=== PATIENT | male | born 1950 | race Caucasian/White ===

== ENCOUNTER 2016-04-18 | Outpatient (CLI) | payer MEDICARE, BC | END 2016-04-18 10:11 | disposition short-term general hospital (02) | DX: R07.9 Chest pain, unspecified (principal) | CPT/HCPCS: A0170; A0425; A0427 ==

== ENCOUNTER 2016-07-13 12:31 | Emergency (ER) | payer MEDICARE, BC ==
[2016-07-13] MEDS ORDERED: ACETAMINOPHEN 325 MG TABLET PO STA (13:05)
[2016-07-13] MEDS ORDERED: DEXAMETHASONE 10 MG/ML VIAL PO STA (13:05)
[2016-07-13] MEDS ORDERED: ACETAMINOPHEN 325 MG TABLET PO ONE (13:08)
[2016-07-13] MEDS ORDERED: DEXAMETHASONE 10 MG/ML VIAL ONE (13:08)
[2016-07-13] MEDS ORDERED: CHERRY SYRUP 10 ML UDC PO ONE (13:08)
== END 2016-07-13 13:25 | disposition home or self-care (01) ==
DX: M46.1 Sacroiliitis, not elsewhere classified (principal); I11.0 Hypertensive heart disease with heart failure; I50.9 Heart failure, unspecified; F17.200 Nicotine dependence, unspecified, uncomplicated; E11.9 Type 2 diabetes mellitus without complications
CPT/HCPCS: 99283; 99284; A9270

== ENCOUNTER 2016-09-07 10:29 | Emergency (ER) | payer OTHER ==
--- NOTE | 2016-09-07 11:13 | ED Physician Documentation ---
PD HPI CHEST PAIN - Stated complaint Stated Complaint: AFIB - Chief complaint Chief Complaint: General - History obtained from History obtained from: Patient - History of Present Illness Timing - onset: How many days ago (4) Timing - details: Still present Pain level now: 3 Quality: Dull Location: Left chest Associated symptoms: Shortness of air (mild), Feeling faint / dizzy ( intermittently) Similar symptoms before: Diagnosis (Atrial fibrillation) - Additional information Additional information: The patient is a 65-year-old male who presents with atrial fibrillation that started 4 days ago and has persisted since that time, despite Valsalva maneuvers. For the past 2 days he has had left anterior chest discomfort which has been waxing and waning, and which he currently rates at 3 out of 10 in severity. He has had associated shortness of breath and lightheadedness when standing. He has measured his blood pressure as low as 80 systolic. He has a history of atrial fibrillation and has undergone cardioversion in the past. He has also undergone ablation therapy. He is currently anticoagulated on Xarelto and Plavix. Cardiac history is also significant for previous HI and CABG. Review of Systems Constitutional: denies: Fever Nose: denies: Congestion Throat: denies: Sore throat Cardiac: reports: Chest pain / pressure, Palpitations Respiratory: reports: Dyspnea. denies: Cough GI: denies: Abdominal Pain, Nausea, Vomiting : denies: Dysuria Skin: denies: Rash Musculoskeletal: denies: Back pain, Extremity swelling Neurologic: denies: Focal weakness, Numbness, Syncope, Headache PD PAST MEDICAL HISTORY - Past Medical History Cardiovascular: Congestive heart failure, Hypertension, High cholesterol, Coronary artery disease, HI, Atrial fibrillation Respiratory: COPD, Emphysema, Shortness of breath, Sleep apnea, CPAP use Neuro: Peripheral neuropathy Endocrine/Autoimmune: Type 2 diabetes GI: Diverticulitis : Frequency HEENT: Chronic vision loss Psych: Depression, Anxiety, Post traumatic stress disorder Musculoskeletal: Osteoarthritis Derm: None - Past Surgical History Past Surgical History: Yes General: Other Cardiovascular: CABG, Other HEENT: Tonsil/Adenoidectomy - Present Medications Home Medications: Ambulatory Orders Medication Instructions Recorded Confirmed Albuterol Sulfate [Proair Hfa] 2 puffs INH Q4HR 01/26/15 09/07/16 Fluoxetine HCl 40 mg PO DAILY 01/26/15 09/07/16 Isosorbide Mononitrate ER [Imdur] 30 mg PO DAILY 01/26/15 09/07/16 Metformin HCl 2,000 mg PO DAILY 01/26/15 09/07/16 Sotalol HCl [Sotalol] 120 mg PO BID 01/26/15 09/07/16 - Allergies Allergies/Adverse Reactions: Allergies Allergy/AdvReac Type Severity Reaction Status Date / Time No Known Drug Allergies Allergy Verified 07/13/16 12:45 - Living Situation Living Situation: reports: With spouse/s.o. - Social History Does the pt smoke?: Yes Smoking Status: Current every day smoker Does the pt drink ETOH?: No Does the pt have substance abuse?: No - Immunizations Immunizations are current?: Yes PD ED PE NORMAL - Vitals Vital signs reviewed: Yes (tachycardic) - General General: Alert and oriented X 3, Well developed/nourished - HEENT HEENT: Atraumatic, Pharynx benign - Neck Neck: No adenopathy, No JVD - Cardiac Cardiac: No murmur, Other (Slightly rapid rate, irregularly irregular rhythm.) - Respiratory Respiratory: No respiratory distress, Clear bilaterally - Abdomen Abdomen: Soft, Non tender - Back Back: No CVA TTP - Derm Derm: No rash - Extremities Extremities: No edema, No calf tenderness / cord - Neuro Neuro: Alert and oriented X 3, No motor deficit, Normal speech Results - Vitals Vitals: Vital Signs - 24 hr 09/07/16 09/07/16 09/07/16 10:44 11:56 12:01 Temperature 36.2 C L Heart Rate 110 H 102 H 94 Respiratory 18 19 16 Rate Blood Pressure 125/91 H 118/90 H 108/84 H O2 Saturation 98 95 98 09/07/16 09/07/16 09/07/16 14:58 15:28 15:49 Temperature 36.8 C 36.7 C Heart Rate 91 99 64 Respiratory 14 16 14 Rate Blood Pressure 127/91 H 125/85 H 111/64 O2 Saturation 98 99 99 09/07/16 09/07/16 16:20 16:23 Temperature Heart Rate 65 71 Respiratory 13 16 Rate Blood Pressure 121/61 O2 Saturation 96 96 Oxygen O2 Source Room air - EKG (time done) 10:48 Rate: Rate (enter#) (118) Rhythm: Atrial flutter (with variable block.) [place]: Normal Compare to prior EKG: Unchanged from prior EKG (No significant change compared to prior EKG of 04/18/2016.) Computer interpretation: Agree with computer 11:47 Rate: Rate (enter#) (109) Rhythm: Atrial fibrillation, Other (2-beat unsustained V-tach.) [place]: Normal Ischemia: No: ST elevation c/w ischemia Compare to prior EKG: Changed from prior EKG (2-beat unsustained V-tach is new since prior tracing, but otherwise unchanged.) Computer interpretation: Agree with computer 15:51 Rate: Rate (enter#) (79) Rhythm: NSR Ischemia: T wave inversion (in anterior leads V3-V5.). No: ST elevation c/w ischemia Other comments: Other comments (Abnormal R-wave progression, early transition.) Compare to prior EKG: Changed from prior EKG (No longer in A-fib.) Computer interpretation: Agree with computer - Labs Labs: Laboratory Tests 09/07/16 09/07/16 09/07/16 11:00 11:00 11:00 WBC 6.6 RBC 4.53 L Hgb 14.1 Hct 41.4 L MCV 91.5 MCH 31.1 H MCHC 34.0 RDW 15.3 H Plt Count 197 MPV 7.9 Neut # 4.4 Lymph # 1.2 L Curry # 0.8 Eos # 0.2 Baso # 0.1 Absolute Nucleated RBC 0.00 Nucleated RBCs 0.0 Sodium 135 Potassium 5.0 Chloride 102 Carbon Dioxide 26 Anion Gap 7.0 BUN 18 Creatinine 1.0 Estimated GFR (MDRD) 75 L Glucose 188 H Calcium 9.3 Total Bilirubin 0.6 AST 21 ALT 30 Alkaline Phosphatase 65 Troponin I < 0.04 B-Natriuretic Peptide Total Protein 7.1 Albumin 4.3 Globulin 2.8 Albumin/Globulin Ratio 1.5 Lipase 25 09/07/16 11:00 WBC RBC Hgb Hct MCV MCH MCHC RDW Plt Count MPV Neut # Lymph # Curry # Eos # Baso # Absolute Nucleated RBC Nucleated RBCs Sodium Potassium Chloride Carbon Dioxide Anion Gap BUN Creatinine Estimated GFR (MDRD) Glucose Calcium Total Bilirubin AST ALT Alkaline Phosphatase Troponin I B-Natriuretic Peptide 217 H Total Protein Albumin Globulin Albumin/Globulin Ratio Lipase - Rads (name of study) Chest one view Radiology: Prelim report reviewed, EMP read contemporaneously, See rad report ( Mild vascular fullness.) Procedures - Cardioversion 1 Time of attempt: 15:30 Indication: Tachyarrhythmia Risks, benefits, alternatives explained to: Pt Prep: IV, O2, industrial/organizational psychologist, Pulse ox, Airway equip Meds: Propofol (60 mg), Versed (1 mg) CS via: AP approach Sync: Biphasic, 200j Post cardioversion rhythm: NSR Performed by: ED MD MEDICAL DECISION MAKING - ED course Complexity details: reviewed old records, reviewed results, re-evaluated patient , considered differential, d/w patient, d/w family, d/w retail consultant ED course: The patient's presentation is significant for 4 day history of atrial fibrillation, with associated anterior chest discomfort. His chest pain is most likely rate related, and I doubt myocardial infarction with a normal troponin level after this period of time. He does not appear to be in congestive heart failure. His chest x-ray reveals no acute cardiopulmonary abnormality, and his BNP is only mildly elevated at 217. Treatment in the emergency department included administration of sublingual nitroglycerin, which did decrease his chest discomfort. After discussion with his cobbler upper, and after obtaining informed consent from the patient, cardioversion was performed. With the respiratory therapist, the nurse, and myself at the bedside, the patient was sedated with Versed 1 mg and propofol 60 mg IV. Synchronize cardioversion with 200 J resulted in return to normal sinus rhythm. Repeat electrocardiogram reveals no ischemic abnormalities on the tracing. The patient recovered from procedural sedation without difficulty, and reports complete resolution of his symptoms. He is being discharged with advice to continue his current medications, including metoprolol, Xarelto, and Plavix. I discussed potential hospitalization for overnight observation with him and his , but he expressed a strong preference to be discharged. I discussed with them potentially worrisome signs or symptoms that should prompt reevaluation in the emergency department. Departure - Departure Disposition: 01 Home, Self Care Clinical Impression: Atrial fibrillation Qualifiers: Atrial fibrillation type: paroxysmal Qualified Code(s): I48.0 - Paroxysmal atrial fibrillation Chest pain Qualifiers: Chest pain type: precordial pain Qualified Code(s): R07.2 - Precordial pain Condition: Stable Instructions: ED Afib Follow-Up: JAMES CAMPBELL MD [Physician No Access] - Comments: 1. Continue your currently prescribed medications. 2. Follow-up with your cobbler upper next week as planned. 3. Return to the emergency department if you develop recurrent chest pain, persistent atrial fibrillation, or otherwise worsening symptoms. Discharge Date/Time: 09/07/16 16:25
[2016-09-07 11:15] LABS: BASOPHILS # (AUTO) 0.1 10^3/uL (0.0-0.1); EOSINOPHILS # (AUTO) 0.2 10^3/uL (0.0-0.7); EOSINOPHILS % (AUTO) 2.3 %; HCT - HEMATOCRIT 41.4 % (42.0-52.0); HGB - HEMOGLOBIN 14.1 g/dL (14.0-18.0); LYMPHOCYTES # (AUTO) 1.2 10^3/uL (1.5-3.5); LYMPHOCYTES % (AUTO) 18.6 %; MEAN CORPUSCULAR HEMOGLOBIN 31.1 pg (27.0-31.0); MEAN CORPUSCULAR VOLUME 91.5 fL (80.0-94.0); MEAN PLATELET VOLUME 7.9 fL (7.4-11.4); MONOCYTES # (AUTO) 0.8 10^3/uL (0.0-1.0); MONOCYTES % (AUTO) 12.1 %; NEUTROPHILS # (AUTO) 4.4 10^3/uL (1.5-6.6); RED BLOOD COUNT 4.53 10^6/uL (4.70-6.10); RED CELL DISTRIBUTION WIDTH 15.3 % (12.0-15.0); UNCORRECTED WHITE BLOOD COUNT 6.6 x10^3/uL; WHITE BLOOD COUNT 6.6 x10^3/uL (4.8-10.8)
[2016-09-07 11:30] LABS: ALBUMIN/GLOBULIN RATIO 1.5 (1.0-2.2); BILIRUBIN,TOTAL 0.6 mg/dL (0.2-1.0); CALCIUM 9.3 mg/dL (8.5-10.3); TOTAL PROTEIN 7.1 g/dL (6.7-8.2)
[2016-09-07] MEDS ORDERED: ASPIRIN CHEW 81 MG TABLET PO STA (11:44)
[2016-09-07] MEDS ORDERED: ASPIRIN CHEW 81 MG TABLET ONE (11:46)
[2016-09-07] MEDS ORDERED: NITROGLYCERIN SL 0.4 MG TABLET SL ONE (11:46)
[2016-09-07] MEDS: NITROGLYCERIN SL 0.4 MG TABLET SL STA ×3 (11:50→12:01)
--- NOTE | 2016-09-07 12:10 | XRAY Preliminary Report ---
Exam: XR Chest 1 View IMPRESSION: Mild vascular fullness. [facility] SITE ID: [id number]
--- NOTE | 2016-09-07 12:12 | XRAY Report ---
EXAM: CHEST RADIOGRAPHY EXAM DATE: 09/07/2016 11:31 AM. CLINICAL HISTORY: Anterior chest pain. COMPARISON: 01/26/2015. TECHNIQUE: 1 view. FINDINGS: Lungs/Pleura: Coarse lung markings similar to previous study. No definite acute infiltrate, consolida tion, effusion, or pneumothorax. Mediastinum: Heart size unchanged. Mild vascular fullness. Other: Status post median sternotomy. Degenerative changes. IMPRESSION: Mild vascular fullness. [facility] Referring Provider Line: [phone] SITE ID: [id number]
[2016-09-07] MEDS ORDERED: HYDROcod/ACETAM 5/325 MG TABLET PO STA (14:21)
[2016-09-07] MEDS ORDERED: HYDROcod/ACETAM 5/325 MG TABLET ONE (14:43)
[2016-09-07] MEDS ORDERED: PROPOFOL 200 MG/20 ML VIAL IVP STA (15:05)
[2016-09-07] MEDS ORDERED: MIDAZOLAM 2 MG/2 ML VIAL IVP STA (15:06)
[2016-09-07] MEDS ORDERED: PROPOFOL 200 MG/20 ML VIAL IVP ONE (15:20)
[2016-09-07] MEDS ORDERED: MIDAZOLAM 2 MG/2 ML VIAL ONE (15:21)
[2016-09-07 16:21] VITALS: BP 121/61
== END 2016-09-07 16:25 | disposition home or self-care (01) ==
LOC: ED 10:29
DX: I48.0 Paroxysmal atrial fibrillation (principal); I25.2 Old myocardial infarction; I45.81 Long QT syndrome; I10 Essential (primary) hypertension; I25.10 Atherosclerotic heart disease of native coronary artery without angina pectoris; E11.8 Type 2 diabetes mellitus with unspecified complications; F17.200 Nicotine dependence, unspecified, uncomplicated; Z95.1 Presence of aortocoronary bypass graft; Z79.84 Long term (current) use of oral hypoglycemic drugs
CPT/HCPCS: 36415; 71010; 80053; 83690; 83880; 84484; 85025; 92960; 93005; 99152; 99284; A9270

== ENCOUNTER 2017-07-15 10:14 | Emergency (ER) | payer MEDICARE, BC ==
[2017-07-15 10:53] VITALS: BP 115/69
== END 2017-07-15 12:09 | disposition left against medical advice (07) ==
LOC: ED 10:14
DX: Z53.21 Procedure and treatment not carried out due to patient leaving prior to being seen by health care provider (principal)
CPT/HCPCS: 99282

== ENCOUNTER 2017-10-14 05:37 | Outpatient (CLI) | payer MEDICARE, BC | END 2017-10-14 23:59 | disposition short-term general hospital (02) | LOC: EMS 05:37 | PROVIDERS: ATTEND Surgery | DX: R68.83 Chills (without fever) (principal); R09.89 Other specified symptoms and signs involving the circulatory and respiratory systems | CPT/HCPCS: A0425; A0429 ==